=== PATIENT | male | born 1945 | race Caucasian/White ===

== ENCOUNTER 2019-06-04 10:40 | Emergency (ER) | payer OTHER, MEDICAID ==
[~2019-06-04] VITALS: Ht 180.3 cm; Wt 118.8 kg
[~2019-06-04 10:40] MED LIST: ALLO-52 PO; ASPI81CH59 PO; CLOP75TA28 PO; GABA300C10 PO; INSUINJ37 SUBCUT; LEVO50TA53 PO; LISI40TA PO; NIFE90TA49 PO; OMEG1CAP10 PO; SIMV-8 PO
[2019-06-04 11:04] LABS: Basophils # (auto) 0.1 uL; Basophils % (auto) 1.1 % (0.0-2.0); Eosinophils # (auto) 0.4 uL; Eosinophils % (auto) 4.3 % (0.0-7.0); Hemoglobin 15.2 g/dL (13.5-17.5); Lymphocytes # (auto) 2.4 uL; Mean Corpuscular Hemoglobin 30.3 pg (28.0-32.0); Mean Corpuscular Hgb Conc. 34.5 g/dL (32.0-36.0); Mean Corpuscular Volume 87.9 fL (80.0-100.0); Monocytes # (auto) 0.5 uL; Monocytes % (auto) 5.7 % (0.0-12.0); Neutrophils # (auto) 5.1 uL; Neutrophils % (auto) 60.9 % (37.0-80.0); Nucleated Red Blood Cells % 0.1 %; Platelet Count (auto) 253 10^3/uL (140-450); Red Blood Cells 5.01 10^6/uL (4.5-5.90); Red Cell Distribution Width 14.2 % (11.8-14.3); White Blood Cell 8.5 10^3/uL (4.4-10.8)
[2019-06-04 11:24] LABS: Albumin 3.9 g/dL (3.4-5.0); Calcium 10.1 mg/dL (8.5-10.1); Potassium 4.4 mmol/L (3.5-5.1)
[2019-06-04 11:27] LABS: BUN/Creatinine Ratio 23.5; Bilirubin, Total 0.4 mg/dL (0.2-1.0); Total Protein 7.9 g/dL (6.4-8.2)
[2019-06-04 14:10] VITALS: BP 114/54
== END 2019-06-04 14:30 | disposition home or self-care (01) ==
LOC: ER 10:40
DX: E11.22 Type 2 diabetes mellitus with diabetic chronic kidney disease (principal); I12.9 Hypertensive chronic kidney disease with stage 1 through stage 4 chronic kidney disease, or unspecified chronic kidney disease; N18.3 Chronic kidney disease, stage 3 (moderate); Z79.4 Long term (current) use of insulin; E78.5 Hyperlipidemia, unspecified; Z98.61 Coronary angioplasty status; Z79.899 Other long term (current) drug therapy
CPT/HCPCS: 36415; 80053; 85025

== ENCOUNTER 2023-09-04 11:35 | Day surgery (SDC) | payer OTHER, MEDICAID ==
[2023-09-04] VITALS (8 sets, daily range): BP systolic 93–142; BP diastolic 62–69; PULSE 62–68; RESP 11–95; TEMP 98.6; O2SAT 91–95
[~2023-09-04] VITALS: Ht 177.8 cm; Wt 111.1 kg
[~2023-09-04 11:35] MED LIST changes: +GABA-1250 PO; -GABA300C10 PO; -LISI40TA PO; +LISI40TA16 PO; +METF-370 PO; -NIFE90TA49 PO; +NIFE90TA75 PO; -SIMV-8 PO; +SIMV20TA20 PO
[2023-09-04] MEDS ORDERED: LIDOCAINE 2%HCL (LOCAL ANESTH.) INJ 20ML MDV ONE (13:09)
[2023-09-04] MEDS ORDERED: IODIXANOL 320MG/ML 100ML BTL IV ONE ×2 (13:09→13:13)
[2023-09-04] MEDS ORDERED: HEPARIN SODIUM (PORCINE) 5000 UNITS/ML 1ML VIAL ONE (13:12)
[2023-09-04] MEDS ORDERED: MIDAZOLAM HCL 2MG/2ML 2ml VIAL (1mg/ml) ONE (13:12)
[2023-09-04] MEDS ORDERED: SODIUM CHL 0.9% 0 ML ONE (13:12)
[2023-09-04] MEDS ORDERED: VERAPAMIL 2.5MG/ML INJ 2ML VIAL IV ONE (13:12)
[2023-09-04] MEDS ORDERED: fentaNYL CITRATE 100 MCG/2 ML VL ONE (13:12)
[2023-09-04] MEDS ORDERED: ANGIOMAX 250 MG VIAL IV ONE (13:12)
== END 2023-09-04 17:29 | disposition home or self-care (01) ==
LOC: CATH 11:35
PROVIDERS: ATTEND Internal Medicine
DX: I25.10 Atherosclerotic heart disease of native coronary artery without angina pectoris (principal); I35.0 Nonrheumatic aortic (valve) stenosis; Z95.5 Presence of coronary angioplasty implant and graft; Z85.46 Personal history of malignant neoplasm of prostate; Z82.49 Family history of ischemic heart disease and other diseases of the circulatory system; Z80.8 Family history of malignant neoplasm of other organs or systems; Z79.82 Long term (current) use of aspirin; Z79.01 Long term (current) use of anticoagulants; Z79.899 Other long term (current) drug therapy; Z98.890 Other specified postprocedural states; Z87.891 Personal history of nicotine dependence
CPT/HCPCS: 93460; C1757; C1769; C1887; C1894; J1644; J2250; J3010; Q9967; 99152; 99153

== ENCOUNTER 2024-05-27 06:30 | Day surgery (SDC) | payer OTHER, MEDICAID ==
[~2024-05-27] VITALS: Ht 180.3 cm; Wt 113.9 kg
[2024-05-27] VITALS (8 sets, daily range): BP systolic 145–161; BP diastolic 56–75; PULSE 53–63; RESP 12–15; TEMP 98; O2SAT 92–96
[~2024-05-27 06:30] MED LIST changes: +ALBUAER3 IN; +ATEN50TA PO; +CHOL135C10 PO; +FINA5TAB4 PO; +FURO40TA4 PO; +LISI10TA34 PO; -LISI40TA16 PO; +MAGN400T40 PO; +NIFE1TAB30 PO; -NIFE90TA75 PO; +POM
[2024-05-27] MEDS ORDERED: IODIXANOL 320MG/ML 100ML BTL IV ONE ×2 (07:40→10:37)
[2024-05-27] MEDS ORDERED: HEPARIN IN NS 1000Units/500mL 1,500 ML ONE (07:40)
[2024-05-27] MEDS ORDERED: HEPARIN SODIUM (PORCINE) 5000 UNITS/ML 1ML VIAL ONE ×2 (08:59→10:46)
[2024-05-27] MEDS ORDERED: ANGIOMAX 250 MG VIAL IV ONE (08:59)
[2024-05-27] MEDS ORDERED: VERAPAMIL 2.5MG/ML INJ 2ML VIAL IV ONE (09:00)
[2024-05-27] MEDS ORDERED: MIDAZOLAM HCL 2MG/2ML 2ml VIAL (1mg/ml) ONE ×2 (09:00→09:56)
[2024-05-27] MEDS ORDERED: fentaNYL CITRATE 100 MCG/2 ML VL ONE ×2 (09:00→10:03)
[2024-05-27] MEDS ORDERED: SODIUM CHL 0.9% 0 ML ONE (09:01)
[2024-05-27] MEDS ORDERED: LIDOCAINE 2%HCL (LOCAL ANESTH.) INJ 20ML MDV ONE ×2 (09:01→09:56)
[2024-05-27 09:12] LABS: Partial Thromboplastin Time 27.1 SEC (24.5-34.5); Prothrombin Time 10.6 sec (9.3-11.8)
--- NOTE | 2024-05-27 11:30 | DVHOP2 ---
Operative Report - 2 Report Details Date: 05/27/24 Preop Diagnosis: Aortic stenosis. Coronary artery disease. Postop Diagnosis: Mild CAD. Aortic stenosis Surgeon: Pradip Barraza MD Anesthesiologist: Conscious sedation Anesthesia: Mac, Local Consent: The patient was informed of the risks and benefits of the procedure. These inclu de but are not limited to complications of anesthesia, postoperative infection, incomplete relief of symptoms, recurrence of symptoms, damage to blood vessels, nerves and tendons, deep venous thrombosis, pulmonary embolism and possible need for repeat surgery in the future. Complications: No complications. Estimated Blood Loss: 10 cc Findings: Aortic stenosis. Mild CAD Indications for Surgery: Aortic stenosis. Name of Procedure Performed Right and left heart catheterization bilateral cine coronary angiography. Ventriculography not performed. 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 Catheter was pulled. Gradient was not obtained. Ventriculography not performed Procedure Details Procedure Details: Prior local anesthesia with 2% lidocaine to the right wrist and full informed consent obtained the patient was prepped and draped in usual fashion followed by placement of a six [place] sheath in the right radial artery through which a Sameer catheter was used for right and left coronary ostial evaluation. A JR4 diagnostic catheter was used along with a stiff angle glide to access the left ventricle. As mentioned previously we were unable to measure pressures are ventriculography given the development of transient complete AV block. Hemodynamics: Right atrial pressure was eight. Right ventricular pressure was 40/8. Pulmonary artery pressure was 40/15. Capillary wedge pressure was approximately 13-15. End-diastolic pressure was not measured. Cardiac output was 5.0 liters/minute. Coronary anatomy: The RCA is a medium caliber vessel. Mild plaquing in its proximal and distal segments. No significant critical lesions noted. PDA and posterolateral branches are normal. Left main is large and normal. Left anterior descending is large with two diagonals that are normal free of significant disease. Circumflex is large with two marginals free of significant disease. Ventriculography not performed Impression mild CAD. Aortic stenosis by echo showing significant gradient. Normal capillary wedge pressure 13. Normal ejection fraction by echo. Recommendations: Medical therapy is warranted. We will refer for TAVR. Condition Good Disposition Home Date of Service: May 27, 2024 Billing Provider: PRADIP BARRAZA Sr., MD Cardiology Common Codes: 72549-WMLQAIL INP/OBS CARE (High) Cardiology Procedure Codes: 18433-L HEART CATH ROBERTO 02SAT, 07873-P/R & L HEART CATH W/BYPASS PRADIP BARRAZA Sr., MD May 27, 2024 11:30
== END 2024-05-27 13:23 | disposition home or self-care (01) ==
LOC: CATH 06:30
PROVIDERS: ATTEND Internal Medicine
DX: I35.0 Nonrheumatic aortic (valve) stenosis (principal); I25.10 Atherosclerotic heart disease of native coronary artery without angina pectoris; I45.2 Bifascicular block; I44.2 Atrioventricular block, complete; I12.9 Hypertensive chronic kidney disease with stage 1 through stage 4 chronic kidney disease, or unspecified chronic kidney disease; N18.2 Chronic kidney disease, stage 2 (mild); E66.9 Obesity, unspecified; E11.22 Type 2 diabetes mellitus with diabetic chronic kidney disease; Z68.33 Body mass index [BMI] 33.0-33.9, adult; E78.5 Hyperlipidemia, unspecified; Z79.899 Other long term (current) drug therapy; Z98.890 Other specified postprocedural states; Z82.49 Family history of ischemic heart disease and other diseases of the circulatory system; Z83.3 Family history of diabetes mellitus
CPT/HCPCS: 36415; 85610; 85730; 93460; C1769; C1887; C1894; J1644; J2250; J3010; J7030; Q9967; 99152